=== PATIENT | female | born 1935 | race Asian ===

== ENCOUNTER 2018-02-24 08:51 | Inpatient (IN) | payer MEDICARE, OTHER ==
[2018-02-24 09:20] LABS: ADD MAN DIFF? NO
[2018-02-24 09:24] LABS: BASOPHIL # 0.1 10^3/ul (0.0-0.1); BASOPHILS % 1.1 % (0.0-2.0); EOSINOPHILS # 0.1 10^3/ul (0.0-0.5); EOSINOPHILS % 1.4 % (0.0-7.0); HEMATOCRIT 32.3 % (37.0-47.0); HEMOGLOBIN 10.8 g/dl (12.0-16.0); LYMPHOCYTES # 1.9 10^3/ul (0.8-2.9); LYMPHOCYTES % 21.4 % (15.0-51.0); MEAN CORPUSCULAR HEMOGLOBIN 31.8 pg (29.0-33.0); MEAN CORPUSCULAR HGB CONC 33.4 g/dl (32.0-37.0); MEAN PLATELET VOLUME 9.8 fl (7.4-10.4); MONOCYTE # 0.8 10^3/ul (0.3-0.9); MONOCYTES % 9.5 % (0.0-11.0); NEUTROPHIL # 5.8 10^3/ul (1.6-7.5); NEUTROPHILS % 66.1 % (39.0-77.0); PLATELET COUNT 334 10^3/UL (140-415); RED CELL DISTRIBUTION WIDTH 13.6 % (11.5-14.5)
[2018-02-24 09:24] LABS: WHITE BLOOD COUNT 8.8 10^3/ul (4.8-10.8)
[2018-02-24 09:44] LABS: ALANINE AMINOTRANSFERASE 26 IU/L (13-69); ALBUMIN 4.5 g/dl (3.3-4.9); ALBUMIN/GLOBULIN RATIO 1.32; ALKALINE PHOSPHATASE 37 IU/L (42-121); ANION GAP 13 (8-16); ASPARTATE AMINO TRANSFERASE 35 IU/L (15-46); BILIRUBIN,INDIRECT 0.4 mg/dl (0-1.1); BILIRUBIN,TOTAL 0.4 mg/dl (0.2-1.3); BLOOD UREA NITROGEN 21 mg/dl (7-20); CALCIUM 9.5 mg/dl (8.4-10.2); CARBON DIOXIDE 21 mmol/L (21-31); CHLORIDE 108 mmol/L (97-110); CREATININE 1.08 mg/dl (0.44-1.00); GLUCOSE 153 mg/dl (70-220); POTASSIUM 4.4 mmol/L (3.5-5.1); SODIUM 138 mmol/L (135-144); TOTAL PROTEIN 7.9 g/dl (6.1-8.1)
[2018-02-24 09:45] LABS: INR 0.87; PROTIME 11.9 Sec (11.9-14.9); PT RATIO 0.9
[2018-02-24 09:46] LABS: PARTIAL THROMBOPLASTIN TIME 34.1 Sec (25.0-35.0)
[2018-02-24] MEDS ORDERED: ONDANSETRON 4 MG INJ IV (11:00)
[2018-02-24] MEDS ORDERED: ACETAMINOPHEN 325 MG TAB PO (11:00)
[2018-02-24] MEDS ORDERED: NACL 0.9% 3 ML SYG IV (13:00)
[2018-02-24 13:08] LABS: HEMOGLOBIN 10.6 g/dl (12.0-16.0)
[2018-02-24] MEDS: PANTOPRAZOLE 40 MG INJ IV ×2 (14:08→21:31)
[2018-02-24] MEDS: DEXTROSE 5%-0.45% NACL 1,000 ML IV (14:09)
[2018-02-24] MEDS: BISACODYL (EC) 5 MG TAB PO (15:08)
[2018-02-24] MEDS: MAGNESIUM CITRATE 300 ML BTL PO (17:02)
[2018-02-24] MEDS: POLYETHYLENE GLYCOL 3350 119 GM POWDER PO (17:50)
[2018-02-24 19:26] LABS: HEMATOCRIT 35.8 % (37.0-47.0); HEMOGLOBIN 11.8 g/dl (12.0-16.0)
[2018-02-25] MEDS: DEXTROSE 5%-0.45% NACL 1,000 ML IV ×2 (01:12→14:23)
[2018-02-25] MEDS: PANTOPRAZOLE 40 MG INJ IV ×2 (05:27→17:39)
[2018-02-25] MEDS: POLYETHYLENE GLYCOL 3350 119 GM POWDER PO (05:29)
[2018-02-25 06:18] LABS: HEMATOCRIT 33.7 % (37.0-47.0); HEMOGLOBIN 10.9 g/dl (12.0-16.0)
[2018-02-25 07:17] LABS: OCCULT BLOOD STOOL POSITIVE (NEGATIVE)
[2018-02-25] MEDS: hydrALAzine 20 MG INJ IV (08:45)
[2018-02-25] MEDS: LEVOTHYROXINE 88 MCG TAB PO (08:45)
[2018-02-25] MEDS: BISACODYL (EC) 5 MG TAB PO (08:46)
[2018-02-25] MEDS ORDERED: OCTREOTIDE 1 MG in DEXTROSE 5% 95 ML IV (17:00)
[2018-02-25 18:16] LABS: HEMATOCRIT 31.3 % (37.0-47.0); HEMOGLOBIN 10.5 g/dl (12.0-16.0)
[2018-02-26 00:53] LABS: HEMATOCRIT 28.5 % (37.0-47.0); HEMOGLOBIN 9.3 g/dl (12.0-16.0)
[2018-02-26] MEDS: DEXTROSE 5%-0.45% NACL 1,000 ML IV (02:12)
[2018-02-26] MEDS: PANTOPRAZOLE 40 MG INJ IV ×2 (05:59→17:50)
[2018-02-26] MEDS: LEVOTHYROXINE 88 MCG TAB PO (08:40)
[2018-02-26 18:36] LABS: HEMATOCRIT 33.4 % (37.0-47.0); HEMOGLOBIN 10.8 g/dl (12.0-16.0)
[2018-02-27] MEDS: PANTOPRAZOLE 40 MG INJ IV ×2 (05:21→17:18)
[2018-02-27 05:31] LABS: ADD MAN DIFF? NO
[2018-02-27 05:34] LABS: BASOPHIL # 0.1 10^3/ul (0.0-0.1); BASOPHILS % 0.9 % (0.0-2.0); EOSINOPHILS # 0.3 10^3/ul (0.0-0.5); EOSINOPHILS % 3.1 % (0.0-7.0); HEMATOCRIT 29.6 % (37.0-47.0); HEMOGLOBIN 9.7 g/dl (12.0-16.0); LYMPHOCYTES # 2.5 10^3/ul (0.8-2.9); LYMPHOCYTES % 23.3 % (15.0-51.0); MEAN CORPUSCULAR HEMOGLOBIN 31.1 pg (29.0-33.0); MEAN CORPUSCULAR HGB CONC 32.8 g/dl (32.0-37.0); MEAN CORPUSCULAR VOLUME 94.9 fl (82.0-101.0); MEAN PLATELET VOLUME 9.8 fl (7.4-10.4); MONOCYTE # 1.4 10^3/ul (0.3-0.9); MONOCYTES % 12.8 % (0.0-11.0); NEUTROPHIL # 6.4 10^3/ul (1.6-7.5); NEUTROPHILS % 59.2 % (39.0-77.0); PLATELET COUNT 284 10^3/UL (140-415); RED BLOOD COUNT 3.12 10^6/ul (4.20-5.40); RED CELL DISTRIBUTION WIDTH 13.6 % (11.5-14.5)
[2018-02-27 05:34] LABS: WHITE BLOOD COUNT 10.7 10^3/ul (4.8-10.8)
[2018-02-27] MEDS: LEVOTHYROXINE 88 MCG TAB PO (08:07)
[2018-02-27] MEDS: AMLODIPINE 10 MG TAB PO (08:07)
[2018-02-27] MEDS ORDERED: AMLODIPINE 10 MG TAB PO (11:30)
[2018-02-27] MEDS: BENAZEPRIL 40 MG TAB PO (12:01)
[2018-02-27] MEDS: ATENOLOL 25 MG TAB PO (12:02)
[2018-02-27] MEDS: HYDROCODONE/APAP (5/325) TAB PO (21:00)
[2018-02-28] MEDS: PANTOPRAZOLE 40 MG INJ IV ×2 (05:40→17:38)
[2018-02-28] MEDS: PROPOFOL 20 ML (08:20)
[2018-02-28] MEDS: FENTAnyl 50 MCG/ML VIAL (08:21)
[2018-02-28] MEDS: LEVOTHYROXINE 88 MCG TAB PO (08:34)
[2018-02-28] MEDS: ATENOLOL 25 MG TAB PO (08:34)
[2018-02-28] MEDS: HYDROCODONE/APAP (5/325) TAB PO (08:34)
[2018-02-28] MEDS: BENAZEPRIL 40 MG TAB PO (08:34)
[2018-02-28] MEDS: AMLODIPINE 10 MG TAB PO (08:35)
[2018-03-01 05:31] LABS: ADD MAN DIFF? NO
[2018-03-01 05:45] LABS: WHITE BLOOD COUNT 10.5 10^3/ul (4.8-10.8)
[2018-03-01 05:45] LABS: BASOPHIL # 0.1 10^3/ul (0.0-0.1); BASOPHILS % 0.8 % (0.0-2.0); EOSINOPHILS # 0.4 10^3/ul (0.0-0.5); EOSINOPHILS % 4.1 % (0.0-7.0); HEMATOCRIT 29.8 % (37.0-47.0); HEMOGLOBIN 9.7 g/dl (12.0-16.0); LYMPHOCYTES # 2.5 10^3/ul (0.8-2.9); LYMPHOCYTES % 23.7 % (15.0-51.0); MEAN CORPUSCULAR HEMOGLOBIN 30.7 pg (29.0-33.0); MEAN CORPUSCULAR HGB CONC 32.6 g/dl (32.0-37.0); MEAN CORPUSCULAR VOLUME 94.3 fl (82.0-101.0); MEAN PLATELET VOLUME 10.2 fl (7.4-10.4); MONOCYTE # 1.5 10^3/ul (0.3-0.9); MONOCYTES % 14.1 % (0.0-11.0); NEUTROPHILS % 56.7 % (39.0-77.0); PLATELET COUNT 298 10^3/UL (140-415); RED BLOOD COUNT 3.16 10^6/ul (4.20-5.40); RED CELL DISTRIBUTION WIDTH 13.3 % (11.5-14.5)
[2018-03-01] MEDS: PANTOPRAZOLE 40 MG INJ IV ×2 (06:13→17:38)
[2018-03-01 06:18] LABS: ANION GAP 12 (8-16); BLOOD UREA NITROGEN 14 mg/dl (7-20); CALCIUM 10.3 mg/dl (8.4-10.2); CARBON DIOXIDE 30 mmol/L (21-31); CHLORIDE 102 mmol/L (97-110); CREATININE 1.05 mg/dl (0.44-1.00); GLUCOSE 103 mg/dl (70-220); MAGNESIUM 1.9 mg/dl (1.7-2.5); PHOSPHORUS 4.4 mg/dl (2.5-4.9); POTASSIUM 4.8 mmol/L (3.5-5.1); SODIUM 139 mmol/L (135-144)
[2018-03-01] MEDS: AMLODIPINE 10 MG TAB PO (08:26)
[2018-03-01] MEDS: BENAZEPRIL 40 MG TAB PO (08:26)
[2018-03-01] MEDS: LEVOTHYROXINE 88 MCG TAB PO (08:26)
[2018-03-01] MEDS: ATENOLOL 25 MG TAB PO (08:27)
[2018-03-01] MEDS: DOCUSATE SODIUM 100 MG CAP PO (20:48)
[2018-03-02] MEDS: PANTOPRAZOLE 40 MG INJ IV ×2 (05:48→17:34)
[2018-03-02 06:00] LABS: ADD MAN DIFF? NO
[2018-03-02 06:03] LABS: ABNORMAL IP MESSAGE 1; BASOPHIL # 0.1 10^3/ul (0.0-0.1); BASOPHILS % 0.7 % (0.0-2.0); EOSINOPHILS # 0.5 10^3/ul (0.0-0.5); EOSINOPHILS % 4.2 % (0.0-7.0); HEMATOCRIT 28.8 % (37.0-47.0); HEMOGLOBIN 9.3 g/dl (12.0-16.0); LYMPHOCYTES # 2.3 10^3/ul (0.8-2.9); LYMPHOCYTES % 21.5 % (15.0-51.0); MEAN CORPUSCULAR HEMOGLOBIN 30.9 pg (29.0-33.0); MEAN CORPUSCULAR HGB CONC 32.3 g/dl (32.0-37.0); MEAN CORPUSCULAR VOLUME 95.7 fl (82.0-101.0); MEAN PLATELET VOLUME 10.2 fl (7.4-10.4); MONOCYTE # 1.8 10^3/ul (0.3-0.9); MONOCYTES % 16.8 % (0.0-11.0); NEUTROPHIL # 6.1 10^3/ul (1.6-7.5); PLATELET COUNT 303 10^3/UL (140-415); RED BLOOD COUNT 3.01 10^6/ul (4.20-5.40); RED CELL DISTRIBUTION WIDTH 13.6 % (11.5-14.5)
[2018-03-02 06:03] LABS: WHITE BLOOD COUNT 10.8 10^3/ul (4.8-10.8)
[2018-03-02 06:19] LABS: POSITIVE DIFF @See below
[2018-03-02 06:35] LABS: ANION GAP 14 (8-16); BLOOD UREA NITROGEN 17 mg/dl (7-20); CALCIUM 9.6 mg/dl (8.4-10.2); CARBON DIOXIDE 28 mmol/L (21-31); CHLORIDE 101 mmol/L (97-110); CREATININE 1.51 mg/dl (0.44-1.00); GLUCOSE 108 mg/dl (70-220); MAGNESIUM 1.8 mg/dl (1.7-2.5); PHOSPHORUS 4.1 mg/dl (2.5-4.9); POTASSIUM 4.7 mmol/L (3.5-5.1); SODIUM 138 mmol/L (135-144)
[2018-03-02] MEDS: AMLODIPINE 10 MG TAB PO (08:32)
[2018-03-02] MEDS: ATENOLOL 25 MG TAB PO (08:33)
[2018-03-02] MEDS: BENAZEPRIL 40 MG TAB PO (08:33)
[2018-03-02] MEDS: DOCUSATE SODIUM 100 MG CAP PO ×2 (09:00→21:00)
[2018-03-02] MEDS: LEVOTHYROXINE 88 MCG TAB PO (11:39)
[2018-03-02] MEDS: SOD CHLORIDE 0.9% 1,000 ML IV (14:28)
[2018-03-03] MEDS: SOD CHLORIDE 0.9% 1,000 ML IV ×2 (02:20→06:01)
[2018-03-03] MEDS: PANTOPRAZOLE 40 MG INJ IV (05:56)
[2018-03-03 06:38] LABS: ADD MAN DIFF? NO
[2018-03-03 06:49] LABS: ABNORMAL IP MESSAGE 1; BASOPHIL # 0.1 10^3/ul (0.0-0.1); BASOPHILS % 0.9 % (0.0-2.0); EOSINOPHILS # 0.4 10^3/ul (0.0-0.5); EOSINOPHILS % 4.1 % (0.0-7.0); HEMATOCRIT 30.4 % (37.0-47.0); HEMOGLOBIN 9.7 g/dl (12.0-16.0); LYMPHOCYTES # 2.4 10^3/ul (0.8-2.9); LYMPHOCYTES % 24.2 % (15.0-51.0); MEAN CORPUSCULAR HEMOGLOBIN 30.5 pg (29.0-33.0); MEAN CORPUSCULAR HGB CONC 31.9 g/dl (32.0-37.0); MEAN CORPUSCULAR VOLUME 95.6 fl (82.0-101.0); MEAN PLATELET VOLUME 10.3 fl (7.4-10.4); MONOCYTE # 1.6 10^3/ul (0.3-0.9); MONOCYTES % 16.1 % (0.0-11.0); NEUTROPHIL # 5.3 10^3/ul (1.6-7.5); NEUTROPHILS % 53.9 % (39.0-77.0); PLATELET COUNT 322 10^3/UL (140-415); RED BLOOD COUNT 3.18 10^6/ul (4.20-5.40); RED CELL DISTRIBUTION WIDTH 13.4 % (11.5-14.5)
[2018-03-03 06:49] LABS: WHITE BLOOD COUNT 9.9 10^3/ul (4.8-10.8)
[2018-03-03 07:03] LABS: POSITIVE DIFF @See below
[2018-03-03 07:19] LABS: ANION GAP 12 (8-16); BLOOD UREA NITROGEN 19 mg/dl (7-20); CALCIUM 9.2 mg/dl (8.4-10.2); CARBON DIOXIDE 26 mmol/L (21-31); CHLORIDE 106 mmol/L (97-110); CREATININE 1.09 mg/dl (0.44-1.00); GLUCOSE 110 mg/dl (70-220); MAGNESIUM 1.8 mg/dl (1.7-2.5); PHOSPHORUS 3.2 mg/dl (2.5-4.9); POTASSIUM 4.4 mmol/L (3.5-5.1); SODIUM 140 mmol/L (135-144)
[2018-03-03] MEDS: DOCUSATE SODIUM 100 MG CAP PO (10:52)
[2018-03-03] MEDS: AMLODIPINE 10 MG TAB PO (10:52)
[2018-03-03] MEDS: ATENOLOL 25 MG TAB PO (10:52)
[2018-03-03] MEDS: LEVOTHYROXINE 88 MCG TAB PO (10:52)
[2018-03-03] MEDS: BENAZEPRIL 40 MG TAB PO (10:53)
[2018-03-03] MEDS ORDERED: PANTOPRAZOLE (EC) 40 MG TAB PO (18:00)
== END 2018-03-03 16:00 | disposition home health service (06) | DRG 378 ==
LOC: E/R 08:51 → PP2 10:53
PROC: 0DJD8ZZ Inspection of Lower Intestinal Tract, Via Natural or Artificial Opening Endoscopic (ICD-10-PCS; principal; 2018-02-25 15:11)
DX: K62.5 Hemorrhage of anus and rectum (principal); D62 Acute posthemorrhagic anemia; I50.32 Chronic diastolic (congestive) heart failure; N17.9 Acute kidney failure, unspecified; I11.0 Hypertensive heart disease with heart failure; D64.9 Anemia, unspecified; I25.10 Atherosclerotic heart disease of native coronary artery without angina pectoris; E78.5 Hyperlipidemia, unspecified; E03.9 Hypothyroidism, unspecified; K64.8 Other hemorrhoids; K57.31 Diverticulosis of large intestine without perforation or abscess with bleeding; Z79.82 Long term (current) use of aspirin
CPT/HCPCS: 36415; 78278; 80048; 80053; 82270; 83735; 84100; 84484; 85014; 85018; 85025; 85610; 85730; 86850; 86900; 86901; 93005; 99217; 99285-25; G0378